=== PATIENT | female | born 1975 | race Caucasian/White ===

== ENCOUNTER 2018-03-05 12:36 | Outpatient (REF) | payer BC, SELFPAY ==
--- NOTE | 2018-03-05 10:00 | PAPFT_PTH ---
PATIENT: BEV TINSLEY LOC: [facility] U#:[id number] AGE/SX: 42/F ROOM: RE03/05/[address]: Myrna Chao : 1975 BED: DIS: 03/05/2018 SPEC #: [id number] RECD: 03/06/18 13:12 STATUS: BOLIVAR RELa #: [id number] PANDA: 03/05/18 10:[address]: Myrna Smyth DEPT: [facility] Cytology RECD BY: Jeannette Carter ENTERED: 03/06/18 13:13 SP TYPE: PAPFT XIOMARA DR: None Tissues: 1 - CX/ENDOCX FOR PAP SMEARS Procedures: PAP THIN PREP/[facility] Screening HPV DNA PROBE Comments: [id number] (CHLAMYDIA/GC)
[2018-03-05 22:30] LABS: HCT 41.8 % (36.0-46.0); HGB 13.6 g/dL (12.0-15.5); Mean Corp. HGB Concentration 32.5 g/dL (32.0-36.0); Mean Corpuscular Hemoglobin 31.4 pg (27.0-33.0); Mean Corpuscular Volume 96.5 fL (80-95); Mean Platelet Volume 13.4 fL (8.0-11.0); Platelet Count 196 x1000/uL (130-400); RBC 4.33 m/cumm (4.00-5.20); RBC Distribution Width 12.4 % (11.7-14.6); White Blood Cell Count 7.54 k/cumm (4.4-10.8)
[2018-03-05 22:43] LABS: Cholesterol 181 mg/dL (50-200); HDL Cholesterol 46 mg/dL (40-60); LDL CHOLESTEROL 111 mg/dL (<100); TSH 1.15 uIU/mL (0.358-3.74); Triglyceride 120 mg/dL (30-150)
[2018-03-05 22:46] LABS: Hemoglobin A1C 5.8 % (4.5-6.2)
[2018-03-07 14:18] LABS: Chlamydia Result Negative; GC Result Negative; Specimen Description SEE COMMENTS
== END 2018-03-05 12:56 ==
LOC: NCHCN 12:36
PROVIDERS: Visit Provider Nurse Practitioner Family
DX: Z00.00 Encounter for general adult medical examination without abnormal findings (principal); N94.6 Dysmenorrhea, unspecified; Z13.1 Encounter for screening for diabetes mellitus; Z13.220 Encounter for screening for lipoid disorders; Z12.4 Encounter for screening for malignant neoplasm of cervix; Z11.51 Encounter for screening for human papillomavirus (HPV)
CPT/HCPCS: 80061; 83721; 85027; 87491; 87591; 88142; 83036; 84443; 87624

== ENCOUNTER → 2025-02-06 14:03 | Outpatient (CLI) | payer MEDICAID, SELFPAY ==
--- NOTE | 2025-02-06 11:08 | DI.RAD_ITS ---
Exam(s) XR CHEST 2V PA LATERAL EXAM: XR CHEST 2V PA LATERAL CLINICAL HISTORY: cough, R05.9. TECHNIQUE: 2D digital imaging was performed. COMPARISON: No exams were available for comparison FINDINGS: 2 views: Heart size is normal. The mediastinum is not widened. Lungs are clear. No infiltrates nor pleural effusions. IMPRESSION: No acute pulmonary findings. DATA REPOSITORY: RADIATION DOSE DELIVERED:
== END ==
PROVIDERS: Visit Provider Nurse Practitioner Family
DX: R05.9 Cough, unspecified (principal)
CPT/HCPCS: 71046